=== PATIENT | male | born 1955 | race Caucasian/White ===

== ENCOUNTER 2018-11-26 09:06 | Emergency (ER) | payer OTHER ==
[2018-11-26] MEDS ORDERED: CYCLOBENZAPRINE HCL 10 MG TABLET ONE (09:30)
[2018-11-26] MEDS ORDERED: ONDANSETRON ODT 4 MG TAB ONE (09:31)
[2018-11-26] MEDS ORDERED: HYDROCODONE/ACETAMINOPHEN 10/325 MG TAB ONE (09:31)
== END 2018-11-26 10:43 | disposition home or self-care (01) ==
LOC: EDH 09:06
DX: S13.8XXA Sprain of joints and ligaments of other parts of neck, initial encounter (principal); S09.8XXA Other specified injuries of head, initial encounter; M54.9 Dorsalgia, unspecified; Z72.0 Tobacco use; V89.2XXA Person injured in unspecified motor-vehicle accident, traffic, initial encounter; Y93.89 Activity, other specified; Y92.098 Other place in other non-institutional residence as the place of occurrence of the external cause; Y99.8 Other external cause status
CPT/HCPCS: 70450; 72125; 72128; 72131